=== PATIENT | male | born 1940 | race Caucasian/White ===

== ENCOUNTER 2017-10-01 05:12 | Emergency (ER) | payer OTHER ==
[2017-10-01 06:43] LABS: BASOPHILS 0.1 % (0-2); EOSINOPHILS 0.2 % (0-7); HEMATOCRIT 37.4 % (42.0-54.0); HEMOGLOBIN 12.7 g/dL (13.5-17.5); IMMATURE GRANULOCYTES 0.2 % (0-5); LYMPHOCYTES 9.1 % (15-50); MCH 31.9 pg (26.0-34.0); MEAN PLATELET VOLUME 9.2 fL (7.4-10.4); MONOCYTES 11.3 % (2-11); NEUTROPHILS 79.1 % (40-80); RBC 3.98 10x6/uL (4.20-6.10); RDW 14.1 % (11.5-14.5); WBC 9.5 10x3/uL (4.8-10.8)
[2017-10-01 06:48] LABS: PLATELET COUNT 121 10x3/uL (130-400)
[2017-10-01 06:52] LABS: ALKALINE PHOSPHATASE 80 U/L (46-116); ALT (SGPT) 33 U/L (10-68); CALC OSMOLALITY 288 mosm/kg (275-300); CALCIUM 8.6 mg/dL (8.5-10.1); CARBON DIOXIDE 26.8 mmol/L (21.0-32.0); CHLORIDE - SERUM 101 mmol/L (98-107); CREATININE - SERUM 2.2 mg/dL (0.6-1.3); POTASSIUM - SERUM 4.2 mmol/L (3.5-5.1); PROTEIN - SERUM 7.7 g/dL (6.4-8.2); SODIUM 138 mmol/L (136-145); UREA NITROGEN 39 mg/dL (7-18); eGFR NON AFRICAN AMERICAN 31 mL/min (90-120)
[2017-10-01 06:54] LABS: GLUCOSE 177 mg/dL (74-106)
[2017-10-01 07:09] LABS: APPEARANCE SLT CLOUDY (CLEAR); BACTERIA MANY /hpf (NONE SEEN); BILIRUBIN NEGATIVE (NEGATIVE); COLOR YELLOW (YELLOW); EPITHELIAL CELLS RARE /hpf (0-5); GLUCOSE 250 mg/dL (NEGATIVE); KETONE NEGATIVE (NEGATIVE); NITRITE NEGATIVE (NEGATIVE); PROTEIN TRACE mg/dL (NEGATIVE); RED CELLS - URINE 0-5 /hpf (0-5); UROBILINOGEN NORMAL (NORMAL); WHITE CELLS - URINE >50 /hpf (0-5)
[2017-10-01 07:17] LABS: CREATINE KINASE 326 UL (21-232); MAGNESIUM - SERUM 1.5 mg/dL (1.8-2.4); PRO BNP 734 pg/mL (0-450); TROPONIN-I < 0.017 ng/mL (0.000-0.060)
[2017-10-01 07:18] LABS: CKMB 3.4 U/L (0.0-3.6)
== END 2017-10-01 10:26 | disposition home or self-care (01) ==
LOC: D.ER 05:12
PROVIDERS: Emergency Medicine
DX: R50.9 Fever, unspecified (principal); N39.0 Urinary tract infection, site not specified; N28.9 Disorder of kidney and ureter, unspecified; E11.65 Type 2 diabetes mellitus with hyperglycemia; F17.200 Nicotine dependence, unspecified, uncomplicated

== ENCOUNTER 2021-01-03 22:48 | Observation (INO) | payer OTHER ==
[~2021-01-03] VITALS: Ht 193 cm; Wt 113.6 kg
[2021-01-03 22:55] VITALS: Ht 193 cm; Wt 113.6 kg
[2021-01-03] MEDS ORDERED: GABAPENTIN100 MG PO (22:58)
[2021-01-03] MEDS ORDERED: PROTONIX40 MG PO (22:58)
[2021-01-03] MEDS ORDERED: TOPROL XL25 MG PO (22:59)
[2021-01-03] MEDS ORDERED: FUROSEMIDE40 MG PO (22:59)
[2021-01-03] MEDS ORDERED: SENNA LAXATIVE8.6 MG PO (22:59)
[2021-01-03] MEDS ORDERED: PLAVIX75 MG PO (22:59)
[2021-01-03] MEDS ORDERED: VALTREX500 MG PO (23:00)
[2021-01-03] MEDS ORDERED: PRESER VISION (23:00)
[2021-01-03] MEDS ORDERED: MAGNESIUM OXID420 MG PO (23:00)
[2021-01-03] MEDS ORDERED: SINGULAIR10 MG PO (23:00)
[2021-01-03] MEDS ORDERED: K-DUR20 MEQ PO (23:01)
[2021-01-03] MEDS ORDERED: LIPITOR80 MG PO (23:01)
[2021-01-03] MEDS ORDERED: GLIPIZIDE10 MG PO (23:01)
[2021-01-03] MEDS ORDERED: NOVOLIN 70/30 110 ML SC (23:01)
[2021-01-03] MEDS ORDERED: LANTUS INS100 UNITS/ SC (23:02)
[2021-01-03] MEDS ORDERED: MELATONIN10 M1 PO (23:02)
[2021-01-03] MEDS ORDERED: OXYCODONE HCL5 M1 PO (23:03)
[2021-01-03] MEDS ORDERED: RESTORIL15 MG PO (23:03)
[2021-01-03] MEDS ORDERED: BENADRYL25 MG PO (23:03)
[2021-01-03 23:29] LABS: BILIRUBIN NEGATIVE (NEGATIVE); KETONE NEGATIVE mg/dL (< 1+); NITRITE NEGATIVE (NEGATIVE); PH 5.5 (5.0-8.0); UROBILINOGEN NORMAL mg/dL (< 2)
[2021-01-03 23:56] LABS: BASOPHILS 0.9 % (0-2); EOSINOPHILS 1.7 % (0-7); HEMATOCRIT 41.4 % (42.0-54.0); HEMOGLOBIN 13.7 g/dL (13.5-17.5); LYMPHOCYTES 21.4 % (15-50); MCH 29.8 pg (26.0-34.0); MCV 90.2 fL (80.0-100.0); MEAN PLATELET VOLUME 7.1 fL (7.4-10.4); MONOCYTES 5.3 % (2-11); NEUTROPHILS 70.7 % (40-80); RBC 4.59 10x6/uL (4.20-6.10); RDW 15.9 % (11.5-14.5); WBC 11.1 10x3/uL (4.8-10.8)
[2021-01-04 00:05] LABS: PLATELET COUNT 218 10x3/uL (130-400)
[2021-01-04 00:07] LABS: D-DIMER-QUANTITATIVE 0.54 ug/mLFEU (0.20-0.54)
[2021-01-04 00:13] LABS: CALC OSMOLALITY 294 mosm/kg (275-300); CALCIUM 9.3 mg/dL (8.5-10.1); CARBON DIOXIDE 30.7 mmol/L (21.0-32.0); CHLORIDE - SERUM 104 mmol/L (98-107); CREATININE - SERUM 1.5 mg/dL (0.6-1.3); GLUCOSE 137 mg/dL (74-106); POTASSIUM - SERUM 4.2 mmol/L (3.5-5.1); SODIUM 144 mmol/L (136-145); UREA NITROGEN 30 mg/dL (7-18); eGFR NON AFRICAN AMERICAN 48 mL/min (90-120)
[2021-01-04 00:18] LABS: ALBUMIN 3.8 g/dL (3.4-5.0); ALKALINE PHOSPHATASE 88 U/L (30-120); ALT (SGPT) 20 U/L (10-68); BILIRUBIN - TOTAL 0.43 mg/dL (0.2-1.3); C-REACTIVE PROTEIN 0.4 mg/dL (0.0-0.9); INR 1.03 (0.85-1.17); LIPASE 84 U/L (73-393); MAGNESIUM - SERUM 1.8 mg/dL (1.8-2.4); PRO BNP 210 pg/mL (0-450); PROTEIN - SERUM 8.2 g/dL (6.4-8.2); PROTIME 12.5 SECONDS (11.6-15.0)
[2021-01-04 00:19] LABS: TROPONIN-I < 0.017 ng/mL (0.000-0.060)
[2021-01-04 01:00] VITALS: BP 135/55
[2021-01-04 04:34] VITALS: BP 125/63
--- NOTE | 2021-01-04 10:55 | NUR ---
PATIENT EXETEMELY UPSET THAT HIS DISCHARGE HAS ARTIE BEEN PU INTO THE COMPUTER, DR. DAVIS WAS PAGED AND DR. WILSON VISITED. DR. WILSON STATES HE WILL PUT IN DISCHARGE. I NOTIFIED PATIENT, THE PATIENT BECAME VERY UPSET AND CALLED THE NURSE, SEVERAL NAMES INCLUDING "BITCH AND ASSHOLE". EXPLAINED TO THE PATIENT THAT IF HE LEAVES BEFORE THE DISCHARGE ORDERS ARE PUT IN THEN HE IS LEAVING AMA. HE STATED THAT WAS FINE WITH HIM. TRIED SEVERAL TIME TO CALM PATIENT DOWN. THE PATIENT WAS ADMIT THAT HE WAS NOT WAITING AND THAT HE WAS LEAVING, CARMINA SKELTON TOOK PATIENT'S PIV OUT (CATH INTACT). PATIENT REFUSED TO SIGN AMA FORMS AND TOOK HIM OUT VIA WHEELCHAIR.
== END 2021-01-04 11:27 | disposition left against medical advice (07) ==
LOC: D.ER 22:48 → D.EDHOLD 01-04 03:27 → OBSVTIME 01-04 03:27 → D.EDHOLD 01-04 11:27
PROVIDERS: Family Medicine; ADMIT Emergency Medicine; ATTEND Emergency Medicine
DX: J44.9 Chronic obstructive pulmonary disease, unspecified (principal); K80.20 Calculus of gallbladder without cholecystitis without obstruction; Z86.73 Personal history of transient ischemic attack (TIA), and cerebral infarction without residual deficits; E11.9 Type 2 diabetes mellitus without complications; I11.0 Hypertensive heart disease with heart failure; I50.9 Heart failure, unspecified; K21.9 Gastro-esophageal reflux disease without esophagitis; Z99.81 Dependence on supplemental oxygen; Z72.0 Tobacco use; Z79.84 Long term (current) use of oral hypoglycemic drugs; R33.9 Retention of urine, unspecified; Z85.46 Personal history of malignant neoplasm of prostate